=== PATIENT | female | born 1965 | race Two or more races ===

== ENCOUNTER 2017-12-24 10:44 | Emergency (ER) | payer MEDICAID ==
[~2017-12-24] VITALS: Ht 157.5 cm; Wt 95.3 kg
[2017-12-24 11:02] VITALS: BP 152/80
[2017-12-24] MEDS ORDERED: METHOCARBAMOL 500 MG TAB PO ONE (12:30)
[2017-12-24] MEDS ORDERED: KETOROLAC TROMETH 60MG/2ML VIAL IM ONE (12:30)
== END 2017-12-24 12:38 | disposition home or self-care (01) ==
LOC: ER 10:44
DX: M54.6 Pain in thoracic spine (principal); M79.1 Myalgia; M19.90 Unspecified osteoarthritis, unspecified site; Z88.0 Allergy status to penicillin
CPT/HCPCS: 71046; 96372; 99284; J1885

== ENCOUNTER 2020-08-28 10:22 | Emergency (ER) | payer MEDICAID ==
[~2020-08-28] VITALS: Ht 154.9 cm; Wt 95.3 kg
[2020-08-28 13:04] VITALS: BP 126/82
== END 2020-08-28 13:03 | disposition home or self-care (01) ==
LOC: ER 10:22
DX: R19.7 Diarrhea, unspecified (principal); Z88.0 Allergy status to penicillin